=== PATIENT | male | born 1960 | race African-American/Black ===

== ENCOUNTER 2018-03-16 21:59 | Inpatient (IN) | payer OTHER ==
[~2018-03-16] VITALS: Ht 199.4 cm; Wt 82.6 kg
[~2018-03-16 21:59] MED LIST: ASPI-1159 PO; BENA40TA9 PO; CLAR10 PO; DIGO250T81 PO; DILT120T2 PO; FURO40TA5 PO; METF-415 PO; OMEP20CA10 PO; PRAV20TA57 PO; WARF7.5T22 PO
[2018-03-16 23:15] LABS: EOSINOPHILS % 1.5 % (0.0-5.0); HEMATOCRIT. 42.8 % (42.0-52.0); HEMOGLOBIN. 14.5 g/dL (14.0-18.0); LYMPHOCYTES % 24.9 % (20.0-50.0); MEAN CORPUSCULAR HEMOGLOBIN 31.5 pg (28.0-32.0); MEAN CORPUSCULAR VOLUME 92.6 fL (80.0-94.0); MONOCYTES % 14.9 % (2.0-8.0); NEUTROPHILS % 57.7 % (40.0-76.0); RED BLOOD CELL COUNT 4.62 mill/uL (4.7-6.1); RED CELL DISTRIBUTION WIDTH 13.5 % (11.6-14.6)
[2018-03-16 23:21] LABS: CHLORIDE 107 mEq/L (98-107)
[2018-03-16 23:22] LABS: INR 1.2; PROTHROMBIN TIME 11.8 sec (9.1-11.1)
[2018-03-17] MEDS ORDERED: NITROGLYCERIN OINT 1GM/INCH UDPKT TD SCH
[2018-03-17] MEDS ORDERED: POTASSIUM CHLORIDE 20MEQ/PACKET PO SCH
[2018-03-17] MEDS ORDERED: FUROSEMIDE 40MG/4ML VIAL IVP SCH
[2018-03-17] MEDS ORDERED: ACETAMINOPHEN 325MG TABLET PO PRN (00:15)
[2018-03-17] MEDS ORDERED: HYDROCODONE/ACETAMINOPHEN 5/325MG TABLET PO PRN (00:15)
[2018-03-17] MEDS ORDERED: MAGNESIUM/ALUMINUM HYDROXIDE/SIMETHICONE 30ML UDC PO PRN (00:15)
[2018-03-17] MEDS ORDERED: IPRATROPIUM/ALBUTEROL 0.5-3(2.5)MG/3ML NEB INH PRN (00:15)
[2018-03-17] MEDS ORDERED: ONDANSETRON HCL 4MG/2ML INJ IV PRN (00:15)
[2018-03-17 01:17] LABS: CHLORIDE 105 mEq/L (98-107)
[2018-03-17 02:28] LABS: MEAN PLATELET VOLUME 10.2 fl (7.4-10.4); PLATELET 179 x1000/uL (130-400)
[2018-03-17] MEDS: CLONIDINE 0.1MG TABLET PO PRN (02:48)
[2018-03-17 07:03] LABS: CREATINE KINASE MB FRACTION 4.8 ng/mL (0.5-3.6)
[2018-03-17] MEDS: FUROSEMIDE 40MG/4ML VIAL IV SCH ×2 (07:44→17:33)
[2018-03-17 08:00] VITALS: BP 129/85
[2018-03-17] MEDS ORDERED: ENOXAPARIN 40MG/0.4ML SYR SUBCUT SCH (09:00)
[2018-03-17] MEDS ORDERED: DEXTROSE 50% WATER 50ML SYRINGE IV PRN (09:15)
[2018-03-17] MEDS: BLOOD SUGAR DIAGNOSTIC STRIP TEST SCH ×3 (11:45→21:00)
[2018-03-17 12:00] VITALS: BP 144/90
[2018-03-17] MEDS ORDERED: INSULIN LISPRO 100 UNITS/ML SUBCUT SCH (12:15)
[2018-03-17] MEDS: POTASSIUM CHLORIDE 20MEQ TABLET SR PO SCH (13:40)
[2018-03-17] MEDS: LISINOPRIL 2.5MG TABLET PO SCH (13:40)
[2018-03-17] MEDS: INSULIN LISPRO 100 UNITS/ML SUBCUT SCH ×3 (13:45→22:15)
[2018-03-17 14:40] LABS: CLARITY URINE CLEAR (CLEAR); COLOR URINE YELLOW (YELLOW); KETONES URINE NEGATIVE (NEGATIVE); LEUKOCYTE ESTERASE URINE NEGATIVE (NEGATIVE); NITRITE URINE NEGATIVE (NEGATIVE); OCCULT BLOOD URINE NEGATIVE (NEGATIVE); PH URINE 6.5 (4.5-8.0); PROTEIN URINE 1+ (NEGATIVE); SPECIFIC GRAVITY URINE 1.007 (1.005-1.030)
[2018-03-17 15:12] LABS: *AMPHETAMINES SCREEN URINE NEGATIVE (NEGATIVE)
[2018-03-17 15:13] LABS: *BARBITURATES SCREEN URINE NEGATIVE (NEGATIVE); *BENZODIAZEPINES SCREEN URINE NEGATIVE (NEGATIVE); *COCAINE SCREEN URINE NEGATIVE (NEGATIVE); METHADONE URINE SCREEN NEGATIVE (NEGATIVE); OPIATES URINE SCREEN NEGATIVE (NEGATIVE)
[2018-03-17 15:14] LABS: CANNABINOID URINE SCREEN PRESUMTIVE POSITIVE (NEGATIVE); PHENCYCLIDINE URINE SCREEN NEGATIVE (NEGATIVE)
[2018-03-17 16:00] VITALS: BP 126/92
[2018-03-17 17:30] LABS: CREATINE KINASE MB FRACTION 4.8 ng/mL (0.5-3.6)
[2018-03-17] MEDS: RIVAROXABAN 20 MG TABLET PO SCH (17:33)
[2018-03-17 20:00] VITALS: BP 126/95
[2018-03-17] MEDS: CARVEDILOL 6.25 MG TABLET PO SCH (21:59)
[2018-03-18] VITALS (7 sets, daily range): BP systolic 114–141; BP diastolic 85–102
[2018-03-18] MEDS ORDERED: GUAIFENESIN 200MG/10ML SUGAR FREE UDC PO PRN (00:30)
[2018-03-18] MEDS: BLOOD SUGAR DIAGNOSTIC STRIP TEST SCH ×3 (05:53→17:33)
[2018-03-18] MEDS: CLONIDINE 0.1MG TABLET PO PRN (05:54)
[2018-03-18 07:11] LABS: CHLORIDE 101 mEq/L (98-107)
[2018-03-18] MEDS: INSULIN LISPRO 100 UNITS/ML SUBCUT SCH ×3 (07:15→17:15)
[2018-03-18 07:24] LABS: BASOPHILS % 0.7 % (0.0-2.0); EOSINOPHILS % 1.1 % (0.0-5.0); HEMOGLOBIN. 15.9 g/dL (14.0-18.0); LYMPHOCYTES % 23.9 % (20.0-50.0); MEAN CORPUSCULAR HEMOGLOBIN 31.9 pg (28.0-32.0); MEAN CORPUSCULAR VOLUME 94.4 fL (80.0-94.0); MONOCYTES % 10.2 % (2.0-8.0); NEUTROPHILS % 64.1 % (40.0-76.0); RED BLOOD CELL COUNT 4.98 mill/uL (4.7-6.1); RED CELL DISTRIBUTION WIDTH 13.5 % (11.6-14.6)
[2018-03-18 07:30] LABS: LDL CHOLESTEROL 92 mg/dL (5-100)
[2018-03-18 07:32] LABS: HDL CHOLESTEROL 40 mg/dL (40-59)
[2018-03-18] MEDS: FUROSEMIDE 40MG/4ML VIAL IV SCH ×2 (08:54→17:49)
[2018-03-18] MEDS: POTASSIUM CHLORIDE 20MEQ TABLET SR PO SCH (08:54)
[2018-03-18] MEDS: LISINOPRIL 2.5MG TABLET PO SCH (08:55)
[2018-03-18] MEDS: CARVEDILOL 6.25 MG TABLET PO SCH (08:56)
[2018-03-18 09:17] LABS: PLATELET 192 x1000/uL (130-400)
[2018-03-18] MEDS ORDERED: LISINOPRIL 2.5MG TABLET PO SCH (17:00)
[2018-03-18] MEDS: RIVAROXABAN 20 MG TABLET PO SCH (17:49)
== END 2018-03-18 19:35 | disposition short-term general hospital (02) | DRG 194 ==
LOC: ER 21:59 → 5WST 03-17 00:06 → EDBEDREQ 03-17 00:08 → ENRESERV 03-17 07:22
PROVIDERS: ADMIT Internal Medicine; ATTEND Internal Medicine
DX: I11.0 Hypertensive heart disease with heart failure (principal); E43 Unspecified severe protein-calorie malnutrition; I27.20 Pulmonary hypertension, unspecified; I42.9 Cardiomyopathy, unspecified; I48.91 Unspecified atrial fibrillation; E87.6 Hypokalemia; G47.33 Obstructive sleep apnea (adult) (pediatric); E11.9 Type 2 diabetes mellitus without complications; I08.3 Combined rheumatic disorders of mitral, aortic and tricuspid valves; I50.23 Acute on chronic systolic (congestive) heart failure; Z96.659 Presence of unspecified artificial knee joint; J44.9 Chronic obstructive pulmonary disease, unspecified; J06.9 Acute upper respiratory infection, unspecified; F12.90 Cannabis use, unspecified, uncomplicated; Z87.891 Personal history of nicotine dependence; Z68.20 Body mass index [BMI] 20.0-20.9, adult; Z79.82 Long term (current) use of aspirin; Z79.899 Other long term (current) drug therapy; Z79.01 Long term (current) use of anticoagulants
CPT/HCPCS: 36415; 71045; 80048; 80061; 80305; 82550; 82553; 82962; 83735; 83880; 84443; 84484; 93005; 93306; 93970; 96372; 96374; 99285; J1650; J1815; J1940